=== PATIENT | male | born 1985 | race Caucasian/White ===

== ENCOUNTER 2020-01-31 16:32 | Emergency (ER) | payer SELFPAY ==
[2020-01-31 16:45] VITALS: BP 145/87; PULSE 101; RESP 18; TEMP 36.8; O2SAT 98
--- NOTE | 2020-01-31 16:45 | PC.NURSE ---
Pt arrived to ED via [facility]. Per EMS pt called/ sent mother in law a message stating I am leaving here, make sure my kids know I love them . EMS states that when they arrived pt agreed to come to hospital voluntary. When pt arrived this RN went into room and introduced myself and started asking pt questions. Per pt he has been with his girlfriend/ baby mom for 9 years and just broke up in September. Pt states that his ex knows how to piss him off, when he is trying to talk to her and she doesnt answer his phone. Pt states he will continue to call and bother her until she answers or he will call her mom and dad and says things out of anger. . Pt states that he is afraid to and has no thought on harming himself or others. PT states that all he wants is to be loved and to have a family. PT made good eye contact with RN while talking. Informed pt of what was going to happen , change into gown, drawn blood, get urine. After this I informed pt that we would call Crisis and they would sen someone out to talk with pt. Pt states ok . Pt was placed in safe room and sitter is at bedside.
--- NOTE | 2020-01-31 17:07 | ED.GENADULT ---
HPI - General Adult General Chief complaint: Psychiatric Symptoms Stated complaint: SI Time Seen by Provider: 01/31/20 16:38 History of Present Illness HPI narrative: Patient is a 34 y/o male brought in by EMS for possible suicidal ideation. He states that he was upset with his ex girlfriend because she was ignoring him. He states that he texted her mother that he is leaving. This was interpreted as a possible suicidal ideation. EMS was then called and brought him here. He states that he is upset, but not suicidal. Related Data Allergies Allergy/AdvReac Type Severity Reaction Status Date / Time No Known Allergies Allergy Unverified 10/02/15 22:37 Review of Systems Constitutional: Constitutional: Denies chills, Denies fever(s), Denies headache(s) and Denies weakness Eyes: Eyes: Denies blurry vision ENT: Denies headache(s) and Denies neck pain Cardiovascular: Cardiovascular: Denies chest pain and Denies dyspnea Respiratory: Respiratory: Denies cough and Denies dyspnea Gastrointestinal: Gastrointestinal: Denies abdominal pain, Denies diarrhea, Denies nausea and Denies vomiting Genitourinary: Genitourinary: Denies hematuria and Denies dysuria Musculoskeletal: Musculoskeletal: Denies back pain and Denies neck pain Neurologic: Denies headache(s) and Denies weakness [facility] Social History Social History Gender identity (if verbalized by the patient): Male Exam Const: General: no acute distress and well developed Orientation/consciousness: oriented to person, oriented to place, oriented to time and patient oriented x3 HENMT: Head: normocephalic Ears: external ears normal General nose exam: Normal external nose present Eyes: General: appearance normal, both eyes and all related structures Conjunctivae: conjunctivae normal Neck: Neck: normal visual inspection and full ROM Chest: Chest palpation & inspection: normal inspection of the chest and no tenderness Resp: Effort & Inspection: normal respiratory effort Auscultation: clear to auscultation bilaterally Cardio: Rate: regular rate Rhythm: regular rhythm GI: GI Palp: No abdominal tenderness and Yes Soft to palpation Skin: General skin exam: normal color and turgor normal Neuro: General: oriented to person, oriented to place, oriented to time and patient oriented x3 Cognition (Neuro): normal cognition Extrem: General: normal to inspection, full ROM and no pedal edema Psych: Appearance: grossly normal Mental Status: mental status grossly normal Affect: normal affect Thought content: No Suicidality present and No Homicidality present Course Reevaluation(s) Reevaluation #1: Patient is evaluated by crisis and thought to be stable for discharge. Date: 01/31/20 Vital Signs Vital signs: Vital Signs Temperature 36.8 C 01/31/20 16:45 Pulse Rate 101 H 01/31/20 16:45 Respiratory Rate 18 01/31/20 16:45 Blood Pressure 145/87 H 01/31/20 16:45 Pulse Oximetry 98 01/31/20 16:45 Temperature 36.3 C L 01/31/20 20:54 Pulse Rate 80 01/31/20 20:54 Respiratory Rate 19 01/31/20 20:54 Blood Pressure 133/76 01/31/20 20:54 Pulse Oximetry 100 01/31/20 20:54 Medical Decision Making Vital Signs Vital Signs: Vital Signs Temperature 36.8 C 01/31/20 16:45 Pulse Rate 101 H 01/31/20 16:45 Respiratory Rate 18 01/31/20 16:45 Blood Pressure 145/87 H 01/31/20 16:45 Pulse Oximetry 98 01/31/20 16:45 Temperature 36.3 C L 01/31/20 20:54 Pulse Rate 80 01/31/20 20:54 Respiratory Rate 19 01/31/20 20:54 Blood Pressure 133/76 01/31/20 20:54 Pulse Oximetry 100 01/31/20 20:54 Lab Data Result diagrams: 01/31/20 17:28 01/31/20 17:29 Labs: Lab Results 01/31/20 01/31/20 01/31/20 Range/Units 17:28 17:29 18:09 WBC 9.1 (4.5-10.0) K/mm3 RBC 5.28 (4.6-6.20) M/mm3 Hgb 16.1 (14.0-18.0) g/dL Hct 45.8 (42.0-52.0) %
--- NOTE | 2020-01-31 17:25 | PC.NURSE ---
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 Informed pt that he is not able to keep his phone and that we will keep it in a safe place.
[2020-01-31 17:38] LABS: Basophils Percent Auto 0.2 % (0.2-1.2); Eosinophils Absolute Auto 0.1 K/mm3 (0-0.3); Hematocrit 45.8 % (42.0-52.0); Hemoglobin 16.1 g/dL (14.0-18.0); Immature Granulocyte Absolute 0.03 K/mm3 (0.00-0.031); Immature Granulocyte Percent A 0.3 % (0-0.5); Lymphocytes Absolute Auto 1.53 K/mm3 (0.9-3.2); Lymphocytes Percent Auto 16.8 % (18.3-44.2); Mean Corpuscular HGB Conc 35.2 g/dl (32-36); Mean Corpuscular Hemoglobin 30.5 pg (26-34); Mean Corpuscular Volume 86.7 fl (80-100); Mean Platelet Volume 9.7 fl (7.4-10.4); Monocytes Absolute Auto 0.6 K/mm3 (0.1-0.6); Monocytes Percent Auto 6.1 % (2.6-8.5); Neutrophils Absolute Auto 6.9 K/mm3 (1.3-6.7); Neutrophils Percent Auto 75.6 % (45.5-73.1); Platelet Count Result 261 k/mm3 (150-375); Red Blood Count 5.28 M/mm3 (4.6-6.20); Red Cell Distribution Width 12.1 % (11.5-14.5); White Blood Count 9.1 K/mm3 (4.5-10.0)
[2020-01-31 17:50] LABS: Alanine Aminotransferase 14 U/L (4-50); Albumin Level 4.8 g/dL (3.5-5.1); Alkaline Phosphatase 64 U/L (38-126); Aspartate Amino Transferase 21 U/L (17-59); Bilirubin,Total 0.8 mg/dL (0.2-1.3); Blood Urea Nitrogen 7 mg/dL (9-20); Calcium 10.1 mg/dL (8.4-10.2); Carbon Dioxide 25 mmol/L (22-30); Chloride 101 mmol/L (98-107); Estimated CRCL calculation 133 ml/min; Estimated Glomerular Filt Rate > 60; Glucose 143 mg/dL (75-110); Potassium 3.6 mmol/L (3.4-5.0); Sodium 138 mmol/L (137-145)
[2020-01-31 18:29] LABS: Add Urine Microscopic? NO; Appearance Urine Clear (Clear); Bilirubin Urine Negative (Negative); Blood Urine Negative (Negative); Color Urine Straw (Yellow); Glucose Urine UA Negative (Negative); Ketones Urine Negative (Negative); Leukocyte Esterase Ur Negative LEU/UL (Negative); Nitrate Urine Negative (Negative); Protein Urine Negative (Negative); Specific Grav Ur 1.005 (1.001-1.035); Urobilinogen Urine Negative mg/dL (<2.0)
[2020-01-31 18:43] LABS: Barbiturate Screen Urine Negative (Negative); Benzodiazepines Screen Urine Negative (Negative)
[2020-01-31 18:44] LABS: Amphetamine Screen Urine Negative (Negative); Cannabinoid Screen Urine Negative (Negative); Cocaine Screen Urine Negative (Negative); Methadone Screen Urine Negative (Negative); Phencyclidine Screen Urine Negative (Negative)
[2020-01-31 18:48] LABS: Opiate Screen Urine Negative (Negative)
--- NOTE | 2020-01-31 19:02 | PC.NURSE ---
spoke with Scot from Crisis. She states that she will have someone call out and speak with pt.
--- NOTE | 2020-01-31 19:28 | PC.NURSE ---
report taken from lluvia beck at this time.
[2020-01-31 19:45] VITALS: BP 135/88; PULSE 98; RESP 19; O2SAT 100
[2020-01-31 20:54] VITALS: BP 133/76; PULSE 80; RESP 19; TEMP 36.3; O2SAT 100
== END 2020-01-31 20:55 | disposition home or self-care (01) ==
PROVIDERS: Emergency Provider Emergency Medicine; PCP Family Medicine
DX: F41.9 Anxiety disorder, unspecified (principal)
CPT/HCPCS: 36415; 80053; 80307; 81003; 84443; 85025; 99284